=== PATIENT | female | born 1995 | race African-American/Black ===

== ENCOUNTER 2017-05-11 16:27 | Emergency (ER) | payer MEDICAID ==
[~2017-05-11] VITALS: Ht 160 cm; Wt 63.0 kg
[2017-05-11 17:25] VITALS: BP 116/61
== END 2017-05-11 17:59 | disposition home or self-care (01) ==
LOC: ER 17:43
DX: H01.009 Unspecified blepharitis unspecified eye, unspecified eyelid (principal); H10.9 Unspecified conjunctivitis; F12.10 Cannabis abuse, uncomplicated
CPT/HCPCS: 99283

== ENCOUNTER 2018-09-07 00:03 | Emergency (ER) | payer MEDICAID ==
[~2018-09-07] VITALS: Ht 162.6 cm; Wt 59.0 kg
[2018-09-07 03:24] VITALS: BP 118/64
== END 2018-09-07 03:24 | disposition home or self-care (01) ==
LOC: ER 01:17
DX: J06.9 Acute upper respiratory infection, unspecified (principal); J02.9 Acute pharyngitis, unspecified; F12.10 Cannabis abuse, uncomplicated
CPT/HCPCS: 87070; 87430; 99283; Z7610